=== PATIENT | male | born 1985 | race Caucasian/White ===

== ENCOUNTER 2017-09-10 08:37 | Emergency (ER) | payer BC, SELFPAY ==
[2017-09-10 08:43] VITALS: BP 130/72; PULSE 49; RESP 16; TEMP 37; O2SAT 99
[2017-09-10] MEDS: Acetaminophen 500 MG TAB 1000 MG PO (08:59)
--- NOTE | 2017-09-10 09:02 | DI.REPORT_ITS ---
SYMPTOM/DIAGNOSIS: PAIN MCP JOINT. RIGHT THUMB: Four views. There is an oblique lucency seen in the proximal aspect of the distal phalanx of the right thumb extending into the interphalangeal joint which may represent a nondisplaced fracture versus artifact. No other fracture or dislocation is seen. The soft tissues are unremarkable. IMPRESSION: Question of a nondisplaced fracture involving the base of the distal phalanx of the right thumb.
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
[2017-09-10 09:31] VITALS: BP 130/72; PULSE 49; RESP 16; TEMP 37; O2SAT 99
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
== END 2017-09-10 09:31 | disposition home or self-care (01) ==
PROVIDERS: Emergency Provider Student in an Organized Health Care Education/Training Program
DX: S63.641A Sprain of metacarpophalangeal joint of right thumb, initial encounter (principal); V18.0XXA Pedal cycle driver injured in noncollision transport accident in nontraffic accident, initial encounter; Y93.55 Activity, bike riding
CPT/HCPCS: 29125; 99283; 73140; L3807